=== PATIENT | female | born 1945 | race Caucasian/White ===

== ENCOUNTER 2020-11-19 07:49 | Outpatient (CLI) | payer MEDICARE, OTHER | END 2020-11-19 07:50 | disposition home or self-care (01) | LOC: MADLAB 07:49 | PROVIDERS: ATTEND Family Medicine | DX: Z01.810 Encounter for preprocedural cardiovascular examination (principal) | CPT/HCPCS: 93005; 93010 ==

== ENCOUNTER 2022-07-03 16:03 | Outpatient (CLI) | payer MEDICARE, OTHER ==
[2022-07-03 16:37] LABS: #Monocytes 0.8 thou/uL (0.11-0.59); #Neutrophils 2.9 thou/uL (1.40-6.50); %Basophils 0.6 % (0.0-1.0); %Eosinophils 0.8 % (0.0-10.0); %Lymphocytes 35.1 % (21.0-51.0); %Monocytes 13.8 % (0.0-10.0); %Neutrophils 49.8 % (42.0-75.0); Mean Corpuscular HGB CONC 34.3 g/dL (32.0-36.0); Mean Corpuscular Volume 93.3 fl (78.0-98.0); Mean Platelet Volume 6.4 fL (7.4-10.4); Platelet Count 172 10x3/uL (130-400); RBC Distribution Width 11.2 % (11.5-14.5); Red Blood Cell (RBC) Count 4.36 mill/uL (4.20-5.40); White Blood Cell (WBC) Count 5.7 10x3/uL (4.8-10.8)
[2022-07-03 16:51] LABS: ALT (SGPT) 30 U/L (8-55); AST (SGOT) 34 U/L (5-34); Alkaline Phosphatase 67 U/L (40-110); Anion Gap 15 mmol/L (10-20); BUN (Urea Nitrogen) 13 mg/dL (9.8-20.1); Bilirubin, Total 0.5 mg/dL (0.2-1.2); Calc. Creatinine Clearance 0 mL/min (70-130); Calcium 9.4 mg/dL (7.8-10.44); Carbon Dioxide 29 mmol/L (23-31); Chloride 99 mmol/L (98-107); Estimated GFR 65; Globulin 3.8 g/dL (2.4-3.5); Glucose 91 mg/dL (83-110); Potassium 2.7 mmol/L (3.5-5.1); Protein, Total 7.8 g/dL (5.8-8.1); Sodium 140 mmol/L (136-145)
== END 2022-07-03 16:04 | disposition home or self-care (01) ==
LOC: MADLAB 16:03
PROVIDERS: ATTEND Family Medicine
DX: R05.1 Acute cough (principal); I10 Essential (primary) hypertension
CPT/HCPCS: 36415; 71046; 80053; 85025